=== PATIENT | female | born 1960 | race Two or more races ===

== ENCOUNTER 2017-06-09 17:47 | Emergency (ER) | payer MEDICAID ==
[~2017-06-09] VITALS: Ht 157.5 cm; Wt 63.5 kg
[2017-06-09 19:30] VITALS: BP 149/79
[2017-06-09 20:50] LABS: Basophils # (auto) 0.1 uL; Basophils % (auto) 0.7 % (0.0-2.0); Eosinophils # (auto) 0.1 uL; Hematocrit 40.3 % (36.0-46.0); Hemoglobin 13.4 g/dL (12.2-16.2); Lymphocytes % (auto) 26.3 % (10.0-50.0); Mean Corpuscular Hemoglobin 28.9 pg (28.0-32.0); Mean Corpuscular Hgb Conc. 33.2 g/dL (32.0-36.0); Mean Corpuscular Volume 86.9 fL (80.0-100.0); Monocytes # (auto) 0.6 uL; Neutrophils # (auto) 4.8 uL; Nucleated Red Blood Cells % 0.1 %; Platelet Count (auto) 216 10^3/uL (140-450); Red Blood Cells 4.64 10^6/uL (4.0-5.20); Red Cell Distribution Width 13.5 % (11.8-14.3); White Blood Cell 7.4 10^3/uL (4.4-10.8)
[2017-06-09 21:05] LABS: Albumin 3.9 g/dL (3.4-5.0); Anion Gap 8 (5-15); Aspartate Aminotransferase 29 U/L (15-37); Blood Urea Nitrogen 13 mg/dL (7-18); Calcium 8.6 mg/dL (8.5-10.1); Carbon Dioxide 26 mmol/L (21-32); Chloride 108 mmol/L (98-107); GFR African American 121 mL/min; GFR Non-African American 100 mL/min; Glucose 138 mg/dL (74-106); Lipase 263 U/L (73-393); Magnesium 2.4 mg/dL (1.6-2.6); Potassium 3.8 mmol/L (3.5-5.1); Sodium 142 mmol/L (136-145)
[2017-06-09 21:14] LABS: Alanine Aminotransferase 37 U/L (13-56); Alkaline Phosphatase 126 U/L (45-117); Bilirubin, Total 0.2 mg/dL (0.2-1.0); Total Protein 7.7 g/dL (6.4-8.2)
[2017-06-09 21:31] LABS: Urine Bacteria NONE SEEN /hpf (None Seen); Urine Blood Negative /uL (Negative); Urine Mucus FEW (None Seen); Urine Specific Gravity 1.033 (1.001-1.035); Urine WBC 2 /hpf (0 - 5)
== END 2017-06-10 03:20 | disposition left against medical advice (07) ==
LOC: ER 17:59
DX: R10.32 Left lower quadrant pain (principal); Z53.21 Procedure and treatment not carried out due to patient leaving prior to being seen by health care provider
CPT/HCPCS: 36415; 80053; 81001; 83690; 83735; 84484; 85025; 93005

== ENCOUNTER 2020-08-29 15:47 | Inpatient (IN) | payer MEDICAID, OTHER ==
[~2020-08-29] VITALS: Ht 162.6 cm; Wt 59.4 kg
[2020-08-29] MEDS ORDERED: SODIUM CHLORIDE 0.9% 500 ML IV ONE (16:15)
[2020-08-29] MEDS ORDERED: SODIUM CHLORIDE 0.9% 1,000 ML IV ONE (16:15)
[2020-08-29] MEDS ORDERED: ZINC SULFATE 220mg CAP or TAB PO ONE (16:15)
[2020-08-29] MEDS ORDERED: CHOLECALCIFEROL (VITD3) 2,000 UNIT CAP/TAB PO ONE (16:15)
[2020-08-29] MEDS ORDERED: AZITHROMYCIN 500MG/ 250ML 250 ML IV ONE (16:15)
[2020-08-29] MEDS ORDERED: ASCORBIC ACID 500 MG TAB PO ONE (16:15)
[2020-08-29 16:39] LABS: Basophils # (auto) 0 10 ^3/uL (0-0.2); Basophils % (auto) 0.3 % (0.0-2.0); Eosinophils # (auto) 0 10 ^3/uL (0-0.8); Eosinophils % (auto) 0.2 % (0.0-7.0); Hematocrit 36.1 % (36.0-46.0); Hemoglobin 12.6 g/dL (12.2-16.2); Lymphocytes # (auto) 0.6 10 ^3/uL (0.4-5.4); Lymphocytes % (auto) 7.4 % (10.0-50.0); Mean Corpuscular Hemoglobin 29.3 pg (28.0-32.0); Mean Corpuscular Volume 83.9 fL (80.0-100.0); Monocytes # (auto) 0.6 10 ^3/uL (0-1.3); Neutrophils # (auto) 6.6 10 ^3/uL (1.6-8.6); Neutrophils % (auto) 84.1 % (37.0-80.0); Platelet Count (auto) 228 10^3/uL (140-450); Red Cell Distribution Width 13.3 % (11.8-14.3); White Blood Cell 7.8 10^3/uL (4.4-10.8)
[2020-08-29 16:54] LABS: Albumin 2.7 g/dL (3.4-5.0); Calcium 8.7 mg/dL (8.5-10.1); Magnesium 2.4 mg/dL (1.6-2.6)
[2020-08-29 16:58] LABS: BUN/Creatinine Ratio 38.6; Bilirubin, Total 0.7 mg/dL (0.2-1.0); Total Protein 7.4 g/dL (6.4-8.2)
[2020-08-29] MEDS ORDERED: cefTRIAXone 1GM/50ML D5W 50 ML IV ONE (18:00)
[2020-08-29] MEDS ORDERED: hydrALAZINE HCL 20 MG/ML VL IV PRN (18:30)
[2020-08-29] MEDS ORDERED: NITROGLYCERIN 0.4 MG SL TAB SL PRN (18:30)
[2020-08-29] MEDS ORDERED: DEXTROSE (50%) 50ML SYRG IV PRN (18:30)
[2020-08-29] MEDS ORDERED: MORPHINE SULF INJ 2 MG/ML SYRINGE 1ML IV PRN (18:30)
[2020-08-29] MEDS ORDERED: ACETAMINOPHEN 500 MG TAB PO PRN (18:30)
[2020-08-29] MEDS ORDERED: POTASSIUM EFFERVESENT TAB 25 MEQ PO ONE (18:45)
[2020-08-29] MEDS: DexAMETHasone SOD PHOS 10MG/1ML VIAL INJ IV SCH (19:02)
[2020-08-29 19:51] LABS: Thyroid Stimulating Hormone 0.69 uIU/mL (0.358-3.74)
[2020-08-29 20:24] VITALS: BP 129/76
[2020-08-29 22:00] VITALS: BP 146/80
[2020-08-29] MEDS: ENOXAPARIN SOD 40 MG/0.4 ML SYRINGE SC SCH (22:31)
[2020-08-29] MEDS: InsuLIN REG 1unit/0.01ml Soln (100units/ml) SC SCH (22:32)
[2020-08-29] MEDS: ACCU-CHEK COMFORT CURVE STRIP VI SCH (22:32)
[2020-08-30] MEDS ORDERED: METH750T22 PO (00:24)
[2020-08-30] MEDS ORDERED: HYDR25TA5 PO (00:24)
[2020-08-30] MEDS ORDERED: METF-370 PO (00:24)
[2020-08-30] MEDS ORDERED: PRAV20TA3 PO (00:24)
[2020-08-30 05:00] VITALS: BP 144/68
[2020-08-30] MEDS: ACCU-CHEK COMFORT CURVE STRIP VI SCH ×4 (06:51→21:52)
[2020-08-30] MEDS: InsuLIN REG 1unit/0.01ml Soln (100units/ml) SC SCH ×4 (06:52→22:12)
[2020-08-30 07:25] LABS: Basophils # (auto) 0 10 ^3/uL (0-0.2); Basophils % (auto) 0.2 % (0.0-2.0); Eosinophils # (auto) 0 10 ^3/uL (0-0.8); Eosinophils % (auto) 0.1 % (0.0-7.0); Hematocrit 37.5 % (36.0-46.0); Hemoglobin 13.3 g/dL (12.2-16.2); Lymphocytes # (auto) 0.5 10 ^3/uL (0.4-5.4); Lymphocytes % (auto) 14.2 % (10.0-50.0); Mean Corpuscular Hemoglobin 29.8 pg (28.0-32.0); Mean Corpuscular Hgb Conc. 35.5 g/dL (32.0-36.0); Monocytes # (auto) 0.2 10 ^3/uL (0-1.3); Monocytes % (auto) 5.1 % (0.0-12.0); Neutrophils % (auto) 80.4 % (37.0-80.0); Nucleated Red Blood Cells % 0.1 %; Platelet Count (auto) 229 10^3/uL (140-450); Red Blood Cells 4.46 10^6/uL (4.0-5.20); White Blood Cell 3.8 10^3/uL (4.4-10.8)
[2020-08-30 07:36] LABS: Albumin 2.7 g/dL (3.4-5.0); BUN/Creatinine Ratio 23.1; Potassium 3.9 mmol/L (3.5-5.1)
[2020-08-30 07:38] LABS: Bilirubin, Total 0.5 mg/dL (0.2-1.0); Total Protein 7.2 g/dL (6.4-8.2)
[2020-08-30] MEDS: ALBUTEROL SULF HFA 90MCG INH 200DOSE IN PRN (07:55)
[2020-08-30] MEDS: DexAMETHasone SOD PHOS 10MG/1ML VIAL INJ IV SCH (08:42)
[2020-08-30] MEDS: CHOLECALCIFEROL (VITD3) 2,000 UNIT CAP/TAB PO SCH (08:43)
[2020-08-30] MEDS: AZITHROMYCIN 500MG/ 250ML 250 ML IV SCH (08:43)
[2020-08-30] MEDS: ASCORBIC ACID 1,000 MG TAB PO SCH (08:43)
[2020-08-30] MEDS: ZINC SULFATE 220mg CAP or TAB PO SCH (08:43)
[2020-08-30] MEDS: ENOXAPARIN SOD 40 MG/0.4 ML SYRINGE SC SCH ×2 (08:43→21:57)
[2020-08-30 09:00] VITALS: BP 128/69
[2020-08-30 09:52] LABS: Urine Bacteria NONE SEEN /hpf (None Seen); Urine Blood Negative /uL (Negative); Urine Mucus FEW (None Seen); Urine Specific Gravity 1.028 (1.001-1.035); Urine WBC <1 /hpf (0 - 5)
[2020-08-30 12:36] VITALS: BP 157/93
[2020-08-30] MEDS: cefTRIAXone 1GM/50ML D5W 50 ML IV SCH (14:38)
[2020-08-30 16:57] VITALS: BP 129/74
[2020-08-30] MEDS ORDERED: TEMAZEPAM 15 MG CAP PO PRN (21:30)
[2020-08-30] MEDS: THROAT LOZENGES(CEPASTAT) MT PRN (21:58)
[2020-08-30 22:00] VITALS: BP 139/72
[2020-08-31 05:00] VITALS: BP 152/78
[2020-08-31 05:43] LABS: Basophils # (auto) 0 10 ^3/uL (0-0.2); Basophils % (auto) 0.1 % (0.0-2.0); Eosinophils # (auto) 0 10 ^3/uL (0-0.8); Hemoglobin 12.7 g/dL (12.2-16.2); Lymphocytes # (auto) 1.1 10 ^3/uL (0.4-5.4); Lymphocytes % (auto) 10.6 % (10.0-50.0); Mean Corpuscular Hgb Conc. 34.4 g/dL (32.0-36.0); Mean Corpuscular Volume 84.4 fL (80.0-100.0); Monocytes % (auto) 9.8 % (0.0-12.0); Neutrophils # (auto) 8.4 10 ^3/uL (1.6-8.6); Neutrophils % (auto) 79.5 % (37.0-80.0); Platelet Count (auto) 329 10^3/uL (140-450); Red Blood Cells 4.38 10^6/uL (4.0-5.20); Red Cell Distribution Width 13.3 % (11.8-14.3); White Blood Cell 10.5 10^3/uL (4.4-10.8)
[2020-08-31 06:00] LABS: BUN/Creatinine Ratio 30.4; Calcium 9.1 mg/dL (8.5-10.1); Magnesium 2.4 mg/dL (1.6-2.6); Potassium 3.8 mmol/L (3.5-5.1)
[2020-08-31] MEDS: ACCU-CHEK COMFORT CURVE STRIP VI SCH ×4 (06:45→21:54)
[2020-08-31] MEDS: InsuLIN REG 1unit/0.01ml Soln (100units/ml) SC SCH ×4 (06:46→21:58)
[2020-08-31 08:00] VITALS: BP 132/74
[2020-08-31 09:00] VITALS: BP 132/74
[2020-08-31] MEDS: cefTRIAXone 1GM/50ML D5W 50 ML IV SCH (11:19)
[2020-08-31] MEDS: ZINC SULFATE 220mg CAP or TAB PO SCH (11:19)
[2020-08-31] MEDS: AZITHROMYCIN 500MG/ 250ML 250 ML IV SCH (11:19)
[2020-08-31] MEDS: ENOXAPARIN SOD 40 MG/0.4 ML SYRINGE SC SCH ×2 (11:20→21:55)
[2020-08-31] MEDS: CHOLECALCIFEROL (VITD3) 2,000 UNIT CAP/TAB PO SCH (11:20)
[2020-08-31] MEDS: ASCORBIC ACID 1,000 MG TAB PO SCH (11:20)
[2020-08-31] MEDS: DexAMETHasone SOD PHOS 10MG/1ML VIAL INJ IV SCH (11:21)
[2020-08-31 12:35] VITALS: BP 136/80
[2020-08-31 22:00] VITALS: BP 119/69
[2020-08-31] MEDS: ALBUTEROL SULF HFA 90MCG INH 200DOSE IN PRN (23:02)
[2020-09-01] MEDS: THROAT LOZENGES(CEPASTAT) MT PRN (00:38)
[2020-09-01 05:00] VITALS: BP 147/76
[2020-09-01] MEDS: ACCU-CHEK COMFORT CURVE STRIP VI SCH ×2 (06:48→11:46)
[2020-09-01] MEDS: InsuLIN REG 1unit/0.01ml Soln (100units/ml) SC SCH ×2 (06:48→11:50)
[2020-09-01 08:00] VITALS: BP 135/75
[2020-09-01] MEDS: ASCORBIC ACID 1,000 MG TAB PO SCH (08:34)
[2020-09-01] MEDS: DexAMETHasone SOD PHOS 10MG/1ML VIAL INJ IV SCH (08:34)
[2020-09-01] MEDS: ZINC SULFATE 220mg CAP or TAB PO SCH (08:34)
[2020-09-01] MEDS: cefTRIAXone 1GM/50ML D5W 50 ML IV SCH (08:34)
[2020-09-01] MEDS: CHOLECALCIFEROL (VITD3) 2,000 UNIT CAP/TAB PO SCH (08:35)
[2020-09-01] MEDS: ENOXAPARIN SOD 40 MG/0.4 ML SYRINGE SC SCH (08:35)
[2020-09-01] MEDS: AZITHROMYCIN 500MG/ 250ML 250 ML IV SCH (09:45)
[2020-09-01 12:00] VITALS: BP 141/87
== END 2020-09-01 14:12 | disposition home or self-care (01) | DRG 177 ==
LOC: ER 15:47 → TELE 18:25 → TELE-EAST 21:13
PROVIDERS: ADMIT Nurse Practitioner Acute Care; ATTEND Internal Medicine
DX: U07.1 COVID-19 (principal); J12.82 Pneumonia due to coronavirus disease 2019; J96.01 Acute respiratory failure with hypoxia; J98.11 Atelectasis; E87.6 Hypokalemia; E11.9 Type 2 diabetes mellitus without complications; I10 Essential (primary) hypertension; E78.5 Hyperlipidemia, unspecified; Z90.49 Acquired absence of other specified parts of digestive tract; Z79.84 Long term (current) use of oral hypoglycemic drugs
CPT/HCPCS: 36415; 71045; 71250; 80048; 80053; 81001; 82306; 82728; 82962; 83036; 83605; 83615; 83735; 84443; 85025; 85379; 86141; 87040; 87081; 87426; 94640; 96361; 96365; 96367; G0378; J0696; J1100; J1815

== ENCOUNTER → 2022-10-06 | Outpatient (CLI) | payer OTHER ==
[~2022-10-06] VITALS: Ht 157.5 cm; Wt 59.4 kg
[~2022-10-06] MED LIST: ADENOSINE 50 MG in GIVE UN-DILUTED 0 ML IV ONE; HYDR25TA5 PO; METF-370 PO; METH-1182 PO; PRAV20TA3 PO
== END | disposition home or self-care (01) ==
LOC: XYW 09:25
PROVIDERS: ATTEND Internal Medicine
DX: R00.2 Palpitations (principal)
CPT/HCPCS: 78452; 93017; A9500; J0153